=== PATIENT | female | born 1990 | race Caucasian/White ===

== ENCOUNTER 2016-08-07 11:15 | Inpatient (IN) | payer MEDICAID ==
[2016-08-07] VITALS (11 sets, daily range): BP systolic 130–142; BP diastolic 62–85; PULSE 95–101; RESP 18; TEMP 98.2
[~2016-08-07] VITALS: Ht 170.2 cm; Wt 113.4 kg
[2016-08-07 12:49] LABS: AUTOMATED NEUTROPHIL # 8.8 TH/MM3 (1.8-7.7); BASOPHIL % 0.2 % (0.0-2.0); EOSINOPHIL % 0.4 % (0.0-4.0); HEMO FLAGS DIFF FINAL; LYMPH % 14.5 % (9.0-44.0); LYMPHOCYTE # 1.6 TH/MM3 (1.0-4.8); MEAN CELL VOLUME 79.4 FL (80.0-100.0); MEAN CORPUSCULAR HEMOGLOBIN 26.7 PG (27.0-34.0); MEAN CORPUSCULAR HGB CONC 33.6 % (32.0-36.0); MONO % 5.2 % (0.0-8.0); NEUT % 79.7 % (16.0-70.0); PLATELET COUNT 322 TH/MM3 (150-450); RED BLOOD COUNT 3.78 MIL/MM3 (4.00-5.30); RED CELL DISTRIBUTION WIDTH 15.1 % (11.6-17.2); WHITE BLOOD COUNT 11.1 TH/MM3 (4.0-11.0)
[2016-08-07 13:09] LABS: ALT (GPT) 13 U/L (10-53); ANION GAP 12 MEQ/L (5-15); AST (GOT) 10 U/L (15-37); BICARBONATE 20.4 MEQ/L (21.0-32.0); BLOOD UREA NITROGEN 6 MG/DL (7-18); CHLORIDE 109 MEQ/L (98-107); GLOMERULAR FILTRATION RATE 159 ML/MIN (>89); POTASSIUM 3.7 MEQ/L (3.5-5.1); SODIUM (NA) 141 MEQ/L (136-145)
[2016-08-07 13:12] LABS: ALKALINE PHOSPHATASE 85 U/L (45-117); TOTAL BILIRUBIN ADULT LESS THAN 0.1 MG/DL (0.2-1.0)
[2016-08-07] MEDS ORDERED: LACTATED RINGER'S 1000 ML INJ 1,000 ML IV PRN (13:23)
[2016-08-07] MEDS ORDERED: SODIUM CHLOR 0.9% 1000 ML INJ 1,000 ML OTHER PRN (13:26)
[2016-08-07] MEDS ORDERED: ONDANSETRON HCL 4 MG/2 ML VIAL IV PRN (13:30)
[2016-08-07] MEDS ORDERED: MINERAL OIL 10 ML VIAL TOPICAL PRN (13:30)
[2016-08-07] MEDS ORDERED: SODIUM CHLORID 0.9% 500 ML INJ 500 ML IV PRN (13:30)
[2016-08-07] MEDS ORDERED: LIDOCAINE HCL 1% 50 ML VIAL I-DERMAL PRN (13:30)
[2016-08-07] MEDS ORDERED: CITRIC ACID-SODIUM CITRATE LIQ 30 ML UDC PO SCH (13:30)
[2016-08-07] MEDS ORDERED: LIDOCAINE HCL 1% 50 ML VIAL INFIL PRN (13:30)
[2016-08-07] MEDS ORDERED: SODIUM CHLOR 0.9% 1000 ML INJ 1,000 ML IV PRN (13:43)
--- NOTE | 2016-08-07 13:48 | HHI.HP ---
HPI Chief Complaint term induction, new diagnosis Gestational HTN at 37 weeks Date Seen: Aug 07, 2016 Time Seen: 11:00 Travel History International Travel<30 Days: No Contact w/Intl Traveler<30Days: No Known Affected Area: No History of Present Illness HPI 26 yo with santiago female IUP at 37w3d by LMP c/w 11wk sono, EDC , presents for routine visit and BP check after being seen yesterday by Dr. Lopez with BP 160/70 and 2+ proteinuria. Yesterday, per Dr. Lopez's office note, pt was asymptomatic, was given option of coming to L&D for steroids, pt declined, desired 1 day recheck of BP. On today's exam pt has 2+ edema to b/l lower extremities and 1+ to hands, c/o headache and seeing spots in vision today. BP remains elevated 156/86 in office. PIH labs were ordered last Saturday with 24h urine showing proteinuria of 334mg/24h, LFTs and plts were wnl. Patient's has been complicated by known history of Crohn's disease, on Humira [id number] injections, pt saw MFM at [facility] for consultation throughout . Early in pyelectasis was noted but this resolved on 07/05/16 scan at [facility]. Otherwise had been uncomplicated and BPs for pt ranged from 116-122/70-78 until office visit with Dr. Burns on 07/30/16 at which time BP was 148/76 and 1+ proteinuria was seen for first time. Pain 0/10 in pelvis, no contractions, no LOF, no VB. Good FM. Para: 0 : 2 Last Menstrual Period: Mar 12, 2016 Miscarriage: 1 : 0 History Past Medical History Narrative Medical Crohn's disease Varicella non-immune* Rubella non-immune* due to pt being on Humira her GI recommends against live vaccines Obstetric History Obstetric History G1 = SAB 11/2014 G2 = current, female Past Surgical History Narrative Surgical colonoscopy 2014 (3 total in lifetime due to Crohn's dz) Family History Family History: Negative Social History Alcohol Use: No Tobacco Use: No (quit when found out ) Substance Abuse: No Allergies-Medications (Allergen,Severity, Reaction): Coded Allergies: No Known Allergies (Unverified , 08/07/16) Review of Systems General / Constitutional: Weight Gain, No: Fever, Chills, Other Eyes: Visual changes (spots in vision past 24h), No: Diploplia, Blurred Vision , Pain, Photophobia HENT: Headaches (past 24h), No: Vertigo, Lightheadedness Cardiovascular: Edema (b/l LE), No: Irregular Rhythm, Chest Pain or Discomfort , Palpitations, Tachycardia, Syncope, Varicosities, Cyanosis Respiratory: No: Cough, Short of Breath, Other Gastrointestinal: No: Nausea, Vomiting, Diarrhea Genitourinary: Pelvic Pain (pressure), No: Decreased Urinary Output, Oliguria Musculoskeletal: No: Limited ROM, Weakness, Cramping, Edema, Pain Skin: No Rash, No Itching, No Dryness, No Lumps, No Change in Pigmentation, No Change in Nails, No Alopecia, No Lesions Neurologic: No: Weakness, Dizziness, Syncope, Focal Abnormalities, Coordination Problem, Headache, Slurred Speech, Seizures Psychiatric: No: Depression, Suicidal Ideations, Homicidal Ideation Endocrine: No: Heat Intolerance, Cold Intolerance, Polydipsia, Polyuria, Other Physical Exam Narrative GENERAL: Well-nourished, well-developed patient. SKIN: Warm and dry. HEAD: Normocephalic and atraumatic. EYES: No scleral icterus. No injection or drainage. ENT: No nasal drainage noted. Mucous membranes pink. Airway patent. NECK: Supple, trachea midline. No JVD. CARDIOVASCULAR: Regular rate and rhythm without murmurs, gallops, or rubs. RESPIRATORY: Breath sounds equal bilaterally. No accessory muscle use. BREASTS: deferred. ABDOMEN/GI: Abdomen soft, non-tender, bowel sounds present, no rebound, no guarding Gravid to [37] weeks size Fundal Height: [39] GENITOURINARY: External Genitalia: intact and normal in appearance BUS glands: wnl] Cervix: [posterior] Dilatation: [closed] Effacement: [50] Station: [-3] Presentation: [vtx] Membranes: [intact Uterine Contractions: [none] FHT's: Category:I tracing on L&D; 02/19 BPP in office yesterday 08/06/16 EXTREMITIES: No cyanosis ; +2 edema to b/l LE; +1 to hands BACK: Nontender without obvious deformity. No CVA tenderness. NEUROLOGICAL: Awake and alert. Motor and sensory grossly within normal limits. Five out of 5 muscle strength in all muscle groups. Normal speech. Data Data Vital Signs Reviewed: Yes Orders Complete Blood Count With Diff (08/07/16 12:36) Hold Clot (08/07/16 12:36) Abo/Rh Blood Type (08/07/16 12:36) Comprehensive Metabolic Panel (08/07/16 12:36) Admit To Inpatient (08/07/16 ) Code Status (08/07/16 13:23) Vital Signs (Adult) .Per protocol (08/07/16 13:23) Activity Oob Ad Patsy (08/07/16 13:23) ^ Heart (08/07/16 13:23) ^ Amnioinfusion (08/07/16 13:23) Urinary Catheter Management .ONCE (08/07/16 13:23) Diet Liquid (08/07/16 Lunch) Lactated Ringer's 1000 Ml Inj (Lr 1000 M (08/07/16 13:23) Lactated Ringer's 1000 Ml Inj (Lr 1000 M (08/07/16 13:23) Sodium Chlorid 0.9% 500 Ml Inj (Ns 500 M (08/07/16 13:30) Sodium Chlor 0.9% 1000 Ml Inj (Ns 1000 M (08/07/16 13:43) Lidocaine 1% Inj (50 Ml) (Xylocaine 1% I (08/07/16 13:30) Citric Acid-Sodium Citrate Liq (Bicitra (08/07/16 13:30) Ondansetron Inj (Zofran Inj) (08/07/16 13:30) Fentanyl Inj (Fentanyl Inj) (08/07/16 13:30) Fentanyl Inj (Fentanyl Inj) (08/07/16 13:30) Urinalysis - C+S If Indicated (08/07/16 13:23) Resp Oxygen Non Rebreathe Mask (08/07/16 ) ^ Epidural / Intrathecal Infus (08/07/16 13:23) Oxytocin 30 Units-500ml Premix (Pitocin (08/07/16 13:30) Lidocaine 1% Inj (50 Ml) (Xylocaine 1% I (08/07/16 13:30) Light Mineral Oil (Muri-Lube Oil) (08/07/16 13:30) Inpatient Certification (08/07/16 ) Specimen To Be Collected PRN (08/07/16 13:23) ^ Notify Parameters (08/07/16 13:23) Uric Acid (08/07/16 13:23) ^ Labor Induction (08/07/16 13:26) ^ Vaginal Insert (08/07/16 13:26) ^ Vaginal Lavage (08/07/16 13:26) ^ Heart (08/07/16 13:26) Sodium Chlor 0.9% 1000 Ml Inj (Ns 1000 M (08/07/16 13:26) Misoprostol Supp (Cytotec Supp) (08/07/16 13:30) Labs Laboratory Tests Test 08/07/16 11:45 White Blood Count 11.1 Red Blood Count 3.78 Hemoglobin 10.1 Hematocrit 30.0 Mean Corpuscular Volume 79.4 Mean Corpuscular Hemoglobin 26.7 Mean Corpuscular Hemoglobin 33.6 Concent Red Cell Distribution Width 15.1 Platelet Count 322 Mean Platelet Volume 6.9 Neutrophils (%) (Auto) 79.7 Lymphocytes (%) (Auto) 14.5 Monocytes (%) (Auto) 5.2 Eosinophils (%) (Auto) 0.4 Basophils (%) (Auto) 0.2 Neutrophils # (Auto) 8.8 Lymphocytes # (Auto) 1.6 Monocytes # (Auto) 0.6 Eosinophils # (Auto) 0.0 Basophils # (Auto) 0.0 CBC Comment DIFF FINAL Differential Comment Sodium Level 141 Potassium Level 3.7 Chloride Level 109 Carbon Dioxide Level 20.4 Anion Gap 12 Blood Urea Nitrogen 6 Creatinine 0.48 Estimat Glomerular Filtration 159 Rate Random Glucose 116 Calcium Level 8.7 Total Bilirubin LESS THAN 0.1 Aspartate Amino Transf 10 (AST/SGOT) Alanine Aminotransferase 13 (ALT/SGPT) Alkaline Phosphatase 85 Total Protein 6.9 Albumin 2.4 Blood Type A POSITIVE Blood Bank Comment Band and Hold Assessment/Plan Problem List: (1) Gestational hypertension w/o significant proteinuria in 3rd trimester Assessment and Plan 26 yo with EDC 08/26/16, 37w3d today, admit for term IOL due to new diagnosis GHTN at term with concerning symptoms. 1) GHTN: pt's BP in office were normal until 36 wks when first noted to be elevated with new proteinuria on Udip. Yesterday pt saw Dr. Lopez and BP was 160/70, PIH labs were wnl but 24h urine showed proteinuria of 334mg/24h; pt was given option of admit for steroids, she declined; on visit today BP remains elevated at 156/86 and now pt has edema, LUCAS and vision changes at home; agrees to admission for IOL; repeat PIH labs ordered; will evaluate for need for magnesium sulfate based on results & symptoms 2) IOL: pt has unfavorable Shah score & is aware of risk of failure of induction; will start with cytotec PV q4h and continue to evaluate; Cat I tracing at this time 3) GBS neg 4) personal h/o Crohn's dz: on Humira (q2wk injections); has seen MFM for consultation during ; pt cannot receive live vaccines due to Humira use 5) status: vertex, female, Cat I tracing currently and 02/19 BPP in office ; EFW 81.3%Lien rao#5oz on 08/06/16 office sono with GISSELLE 8.7cm, posterior placenta Discharge Planning not meeting criteria Denise Rosenthal MD Aug 07, 2016 13:48
[2016-08-07] MEDS: LACTATED RINGER'S 1000 ML INJ 1,000 ML IV SCH ×2 (13:52→22:07)
[2016-08-07] MEDS ORDERED: OXYTOCIN 30 UNITS-500ML PREMIX 500 ML IV ONE (14:00)
[2016-08-07] MEDS ORDERED: MISOPROSTOL 25 MCG SUPP VAGINAL ONE (14:00)
[2016-08-07 14:19] LABS: BACTERIA, URINE MANY /hpf; BLOOD, URINE SMALL (NEG); GLUCOSE,URINE NEG (NEG); HYALINE CAST, URINE 1 /lpf (RARE); KETONE, URINE TRACE mg/dL (NEG); MUCUS URINE FEW /lpf (OCC); NITRITE,URINE NEG (NEG); PH, URINE 5.5 (5.0-8.5); SQUAMOUS EPITHELIAL CELL URINE 5 /hpf (0-5); URINE COLOR YELLOW (YELLW/STRAW)
[2016-08-07 14:21] LABS: COMMENT (UR) CULTURE INDICATED; CULTURE IF INDICATED CULTURE INDICATED
[2016-08-07] MEDS: MISOPROSTOL 25 MCG SUPP VAGINAL SCH ×2 (19:14→23:23)
[2016-08-08] VITALS (34 sets, daily range): BP systolic 129–166; BP diastolic 59–105; PULSE 80–109; RESP 18; TEMP 97.6–98.5
[2016-08-08] MEDS: MISOPROSTOL 25 MCG SUPP VAGINAL SCH ×5 (03:41→18:15)
--- NOTE | 2016-08-08 08:11 | PD.LABORPN ---
Subjective Subjective received 4 doses cytotec yesterday with some cramping states even more swollen than saturday no N, V, LUCAS, blurred vision or RUG! GFM no leaking or bleeding Objective Vital Signs Vital Signs Date Time Temp Pulse Resp B/P Pulse Ox O2 Delivery O2 Flow Rate FiO2 08/08/16 05:00 80 133/69 08/08/16 02:15 18 08/08/16 02:00 98 132/72 08/08/16 01:01 92 137/73 Objective 1+/thick/soft/midposition strip category one efw 8 pounds pelvis unproven 2+ edema and normal reflexes Assessment/Plan Problem List: (1) Gestational hypertension w/o significant proteinuria in 3rd trimester Assessment and Plan induction for PIH--normtensive at this time begin pitocin and allow to use birthing ball and rocking chair while BPs good may be serial induction reassess in pm Ayesha Lopez MD Aug 08, 2016 08:11
[2016-08-08] MEDS ORDERED: OXYTOCIN 30 UNITS-500ML PREMIX 500 ML IV SCH (08:15)
[2016-08-08] MEDS: LACTATED RINGER'S 1000 ML INJ 1,000 ML IV SCH ×2 (09:03→15:19)
--- NOTE | 2016-08-08 13:11 | PD.LABORPN ---
Subjective Subjective feeling occasional UC eating lunch no LUCAS N, V, blurred vision GFM Objective Vital Signs Vital Signs Date Time Temp Pulse Resp B/P Pulse Ox O2 Delivery O2 Flow Rate FiO2 08/08/16 10:43 101 144/90 08/08/16 10:42 18 08/08/16 09:01 99 149/87 08/08/16 08:58 18 08/08/16 08:50 104 135/90 08/08/16 08:25 18 08/08/16 08:23 109 149/90 08/08/16 07:10 98.1 08/08/16 07:08 18 08/08/16 07:00 88 135/69 Objective 1+/80/-1 thinner and softer and more anterior strip reassuring Assessment/Plan Problem List: (1) Gestational hypertension w/o significant proteinuria in 3rd trimester Assessment and Plan Bps mildly elevated--watch for increase ROM when cervix more favorable Ayesha Lopez MD Aug 08, 2016 13:11
[2016-08-08] MEDS ORDERED: MISOPROSTOL 100 MCG TAB PO ONE (19:45)
--- NOTE | 2016-08-08 20:33 | PD.LABORPN ---
Subjective Subjective Mild contractions throughout day. no significant cervical change No LUCAS, N, V, blurred vision GFM Objective Vital Signs Vital Signs Date Time Temp Pulse Resp B/P Pulse Ox O2 Delivery O2 Flow Rate FiO2 08/08/16 19:20 94 140/66 08/08/16 19:09 101 150/101 08/08/16 19:07 97 159/99 08/08/16 19:06 97.6 18 08/08/16 19:05 100 166/100 08/08/16 17:32 18 08/08/16 17:32 87 153/92 08/08/16 16:14 96 154/94 08/08/16 16:13 97.6 08/08/16 16:13 18 08/08/16 15:21 18 08/08/16 15:20 93 150/96 08/08/16 15:17 108 153/105 08/08/16 13:22 91 18 150/84 Objective 1-2 cm/80/-2 intact strip category one Assessment/Plan Problem List: (1) Gestational hypertension w/o significant proteinuria in 3rd trimester Assessment and Plan BPs are gradually increasing when ambulating or sitting upright They are normal when Denise is on her left side. Will try oral cytotec tonight to further ripen cervix and resume pitocin in the am. LFTs and CBC with platelets to be repeated. Ayesha Lopez MD Aug 08, 2016 20:33
[2016-08-08] MEDS ORDERED: PILL SPLITTER OTHER PRN (20:45)
[2016-08-08 20:50] LABS: AUTOMATED NEUTROPHIL # 10.2 TH/MM3 (1.8-7.7); BASOPHIL % 0.1 % (0.0-2.0); EOSINOPHIL # 0.1 TH/MM3 (0-0.4); EOSINOPHIL % 0.5 % (0.0-4.0); HEMATOCRIT 29.1 % (35.0-46.0); HEMO FLAGS DIFF FINAL; LYMPHOCYTE # 1.8 TH/MM3 (1.0-4.8); MEAN CELL VOLUME 79.3 FL (80.0-100.0); MEAN CORPUSCULAR HEMOGLOBIN 26.2 PG (27.0-34.0); MEAN CORPUSCULAR HGB CONC 33.1 % (32.0-36.0); MONO % 6.1 % (0.0-8.0); NEUT % 79.3 % (16.0-70.0); PLATELET COUNT 281 TH/MM3 (150-450); RED BLOOD COUNT 3.67 MIL/MM3 (4.00-5.30); RED CELL DISTRIBUTION WIDTH 14.7 % (11.6-17.2); WHITE BLOOD COUNT 12.8 TH/MM3 (4.0-11.0)
[2016-08-08 21:12] LABS: TOTAL BILIRUBIN ADULT 0.1 MG/DL (0.2-1.0)
[2016-08-08] MEDS ORDERED: NS 1000 ML XX PRN (21:30)
[2016-08-08] MEDS ORDERED: DINOPROSTONE 10 MG INSERT-LEAVE FOR 12 HOURS VAGINAL ONE (21:30)
[2016-08-09] VITALS (59 sets, daily range): BP systolic 91–200; BP diastolic 54–127; PULSE 80–131; RESP 16–18; TEMP 97.5–98.6
[2016-08-09] MEDS: LACTATED RINGER'S 1000 ML INJ 1,000 ML IV SCH ×2 (04:42→08:48)
--- NOTE | 2016-08-09 08:37 | PD.LABORPN ---
Subjective Subjective s/p cervidil last night, IOL for PIH, GBBS neg Objective Vital Signs Vital Signs Date Time Temp Pulse Resp B/P Pulse Ox O2 Delivery O2 Flow Rate FiO2 08/09/16 04:30 97.5 16 08/09/16 04:01 99 141/68 08/09/16 03:01 92 150/86 Objective Pelvic Exam: Cervix: [-] Dilatation: [-] 1-2 cm Effacement: [-] 50% Station: [-] -1 Presentation: [-] vtx Membranes: [intact or ruptured] arom clear Uterine Contractions: [-] irreg FHT's: Category: [-] 1 Baseline: [-] Reactive: [-] R Variability: [-] good Decels: [-] Assessment/Plan Problem List: (1) Gestational hypertension w/o significant proteinuria in 3rd trimester Assessment and Plan IUP at 37 4/7 wks IOL for PIH s/p arom for pit aug epidural prn anticipate GBS neg Jamia Burns MD Aug 09, 2016 08:37
[2016-08-09] MEDS ORDERED: OXYTOCIN 30 UNITS-500ML PREMIX 500 ML IV SCH (08:45)
[2016-08-09] MEDS ORDERED: fentaNYL 2MCG-BUPIV 0.125% INJ 100 ML ONE (11:29)
[2016-08-09] MEDS ORDERED: NO SYSTEM NARCOTICS XX PRN (12:30)
[2016-08-09] MEDS ORDERED: DO NOT ADMINISTER ANTICOAGULANTS XX PRN (12:30)
[2016-08-09] MEDS ORDERED: ePHEDrine/NS 50 MG/5 ML SYR IV PRN (12:30)
--- NOTE | 2016-08-09 14:02 | PD.OB.DELI ---
Anesthesia: Epidural Episiotomy: None Vaginal Delivery: Normal Presentation: Occiput anterior Nuchal Cord: None Infant: Female One Minute : 9 Five Minute : 9 Weight: 7-8 Care: Suctioned Placenta: Spontaneous delivery Laceration: 2 deg Repair: Chromic interrupted, Vicryl Jamia Christy MD Aug 09, 2016 14:02
[2016-08-09] MEDS ORDERED: ONDANSETRON ODT 4 MG TAB PO PRN (14:15)
[2016-08-09] MEDS ORDERED: ZOLPIDEM TARTRATE 5 MG TAB PO PRN (14:15)
[2016-08-09] MEDS ORDERED: ALUMINUM/MAGNESIUM/SIMETH 30 ML CUP PO PRN (14:15)
[2016-08-09] MEDS ORDERED: SODIUM CHLORIDE 0.9% FLUSH 5 ML FLUSH IV PRN (14:15)
[2016-08-09] MEDS ORDERED: OXYTOCIN 30 UNITS-500ML PREMIX 500 ML IV ONE (14:15)
[2016-08-09] MEDS: IBUPROFEN 600 MG TAB PO PRN (17:44)
[2016-08-09] MEDS: ACETAMINOPHEN 325 MG TAB PO PRN (17:47)
[2016-08-09] MEDS: BENZOCAINE 20% TOPICAL SPRAY 60 ML CAN TOPICAL PRN (17:49)
[2016-08-09] MEDS: WITCH HAZEL 50%/GLYCERIN 12.5% 40 PAD JAR TOPICAL PRN (17:49)
[2016-08-09] MEDS ORDERED: SODIUM CHLORIDE 0.9% FLUSH 5 ML FLUSH IV SCH (21:00)
[2016-08-10 03:00] VITALS: BP 142/85; PULSE 90; RESP 18; TEMP 98; O2SAT 98
[2016-08-10] MEDS: IBUPROFEN 600 MG TAB PO PRN ×3 (03:26→18:27)
[2016-08-10] MEDS: ACETAMINOPHEN 325 MG TAB PO PRN ×3 (03:27→20:08)
[2016-08-10] MEDS: DOCUSATE SODIUM 50 MG/SENNA 8.6 MG TAB PO PRN ×2 (03:27→18:27)
[2016-08-10 07:45] VITALS: BP 124/75; PULSE 89; RESP 18; TEMP 97.9
--- NOTE | 2016-08-10 08:25 | HHI.OB ---
Subjective Post Day: 1 Remarks Doing well, Tolerating diet Baby is good Pain is well controlled. Objective Vitals/I&O Vital Signs Date Time Temp Pulse Resp B/P Pulse Ox O2 Delivery O2 Flow Rate FiO2 08/10/16 03:00 90 18 142/85 08/10/16 03:00 98.0 98 08/09/16 15:31 98 140/70 08/09/16 15:10 18 08/09/16 15:01 92 145/80 08/09/16 14:53 18 08/09/16 14:45 90 113/65 08/09/16 14:34 18 08/09/16 14:31 131 91/54 08/09/16 14:25 18 08/09/16 14:16 96 143/93 08/09/16 14:15 98.6 08/09/16 14:15 94 08/09/16 14:10 99 08/09/16 14:05 94 08/09/16 14:01 94 156/86 08/09/16 14:00 94 08/09/16 13:55 91 08/09/16 13:50 105 08/09/16 13:46 105 163/90 08/09/16 13:45 97 08/09/16 13:40 93 08/09/16 13:38 95 159/127 08/09/16 13:35 95 08/09/16 13:31 114 200/115 08/09/16 13:30 102 08/09/16 13:00 97 133/84 08/09/16 13:00 100 08/09/16 12:56 18 08/09/16 12:55 85 08/09/16 12:50 88 08/09/16 12:45 91 08/09/16 12:30 87 140/85 08/09/16 12:30 85 08/09/16 12:26 82 146/82 08/09/16 12:25 92 08/09/16 12:20 85 08/09/16 12:20 91 138/83 08/09/16 12:15 86 08/09/16 12:15 94 141/79 08/09/16 12:10 94 08/09/16 12:10 96 145/79 08/09/16 12:06 95 149/79 08/09/16 12:05 101 08/09/16 12:00 92 147/80 08/09/16 12:00 106 08/09/16 11:57 98.2 18 08/09/16 11:56 92 152/70 08/09/16 11:55 96 08/09/16 11:51 99 143/77 08/09/16 11:50 94 08/09/16 11:46 88 161/84 08/09/16 11:45 82 08/09/16 11:42 99 166/99 08/09/16 11:40 102 170/97 08/09/16 11:40 103 08/09/16 11:35 90 08/09/16 11:30 87 08/09/16 11:25 81 08/09/16 11:25 85 153/94 08/09/16 10:50 83 156/81 08/09/16 10:50 18 08/09/16 08:38 80 149/85 08/09/16 08:28 18 Objective Remarks GENERAL: Well-nourished, well-developed patient. CARDIOVASCULAR: Regular rate and rhythm without murmurs, gallops, or rubs. RESPIRATORY: Breath sounds equal bilaterally. No accessory muscle use. ABDOMEN/GI: Abdomen soft, non-tender. Fundus: Firm, non-tender at umbilicus. GENITOURINARY: Light to moderate bleeding. EXTREMITIES: No cyanosis or edema, non-tender, without signs of DVT. Medications and IVs Current Medications Medications (Trade) Dose Ordered Sig/Ricardo Route Start Time Stop Time Status Last Admin (NS Flush) 2 ml BID IV 08/09/16 21:00 (NS Flush) 2 ml UNSCH PRN IV 08/09/16 14:15 (Tylenol) 650 mg Q4H PRN PO 08/09/16 14:15 08/10/16 03:27 (Motrin) 600 mg Q6H PRN PO 08/09/16 14:15 08/10/16 03:26 (Americaine 20% Top Spr) 1 spray Q4H PRN TOPICAL 08/09/16 14:15 08/09/16 17:49 (Tucks Pads) 1 applic QID PRN TOPICAL 08/09/16 14:15 08/09/16 17:49 (Abi-Colace) 2 tab Q12H PRN PO 08/09/16 14:15 08/10/16 03:27 (Ambien) 5 mg HS PRN PO 08/09/16 14:15 (Mag-Al Plus Susp Liq) 15 ml Q8H PRN PO 08/09/16 14:15 (Zofran Odt) 4 mg Q6H PRN PO 08/09/16 14:15 Assessment/Plan Problem List: (1) Gestational hypertension w/o significant proteinuria in 3rd trimester Assessment and Plan PPD #1 Doing well Advise to get flu shot as she is on Humira Anemia start fe when bowels are moving well. Discharge Planning home tomorrow if stable Tal Darden MD Aug 10, 2016 08:25
[2016-08-11] MEDS: IBUPROFEN 600 MG TAB PO PRN ×2 (02:48→14:50)
[2016-08-11] MEDS: ACETAMINOPHEN 325 MG TAB PO PRN ×2 (02:49→14:50)
[2016-08-11 08:20] VITALS: TEMP 98.3
--- NOTE | 2016-08-11 09:19 | HHI.OB ---
Subjective Post Day: 2 Remarks doing well post vaginal delivery after long labor home today and follow up in 6 weeks Objective Vitals/I&O Vital Signs Date Time Temp Pulse Resp B/P Pulse Ox O2 Delivery O2 Flow Rate FiO2 08/11/16 08:20 98.3 Objective Remarks GENERAL: Well-nourished, well-developed patient. CARDIOVASCULAR: Regular rate and rhythm without murmurs, gallops, or rubs. RESPIRATORY: Breath sounds equal bilaterally. No accessory muscle use. ABDOMEN/GI: Abdomen soft, non-tender. Fundus: Firm, non-tender at umbilicus. GENITOURINARY: Light to moderate bleeding. EXTREMITIES: No cyanosis or edema, non-tender, without signs of DVT. Medications and IVs Current Medications Medications (Trade) Dose Ordered Sig/Ricardo Route Start Time Stop Time Status Last Admin (NS Flush) 2 ml BID IV 08/09/16 21:00 (NS Flush) 2 ml UNSCH PRN IV 08/09/16 14:15 (Tylenol) 650 mg Q4H PRN PO 08/09/16 14:15 08/11/16 02:49 (Motrin) 600 mg Q6H PRN PO 08/09/16 14:15 08/11/16 02:48 (Americaine 20% Top Spr) 1 spray Q4H PRN TOPICAL 08/09/16 14:15 08/09/16 17:49 (Tucks Pads) 1 applic QID PRN TOPICAL 08/09/16 14:15 08/09/16 17:49 (Abi-Colace) 2 tab Q12H PRN PO 08/09/16 14:15 08/10/16 18:27 (Ambien) 5 mg HS PRN PO 08/09/16 14:15 (Mag-Al Plus Susp Liq) 15 ml Q8H PRN PO 08/09/16 14:15 (Zofran Odt) 4 mg Q6H PRN PO 08/09/16 14:15 Assessment/Plan Problem List: (1) Gestational hypertension w/o significant proteinuria in 3rd trimester Assessment and Plan PPD #2 Doing well flu shot Discharge Planning home tomorrow if stable Ayesha Lopez MD Aug 11, 2016 09:19
[2016-08-11] MEDS ORDERED: IBUP-232 PO (09:20)
--- NOTE | 2016-08-11 09:21 | HHI.DCPOC ---
Discharge Care Plan Report Symptoms to Your Doctor -Temperate above 100.5 degrees -Redness, of incision or excessive or foul smelling drainage -Unusual pain or calf pain -Increased vaginal bleeding -Painful or difficulty urinating -Feelings of extreme sadness or anxiety after 2 weeks Goals to Promote Your Health * To prevent worsening of your condition and complications * To maintain your health at the optimal level Directions to Meet Your Goals Take your medications as prescribed Follow your dietary instruction Follow activity as directed Ensure plenty of rest for recovery Drink fluids for hydration Keep your appointments as scheduled Take your immunizations and boosters as scheduled If your symptoms worsen call your PCP, if no PCP go to Urgent Care Center or Emergency Room Smoking is Dangerous to Your Health. Avoid second hand smoke Call the 24-hour crisis hotline for domestic abuse at Ayesha Lopez MD Aug 11, 2016 09:21
[2016-08-11] MEDS: DOCUSATE SODIUM 50 MG/SENNA 8.6 MG TAB PO PRN (14:49)
[2016-08-11] MEDS: WITCH HAZEL 50%/GLYCERIN 12.5% 40 PAD JAR TOPICAL PRN (14:50)
[2016-08-11] MEDS: BENZOCAINE 20% TOPICAL SPRAY 60 ML CAN TOPICAL PRN (14:50)
== END 2016-08-11 15:05 | disposition home or self-care (01) | DRG 775 ==
LOC: H2EB 11:15 → H1EA 08-09 15:52
PROVIDERS: ADMIT Obstetrics & Gynecology; ATTEND Obstetrics & Gynecology
PROC: 10E0XZZ Delivery of Products of Conception, External Approach (ICD-10-PCS; principal; 2016-08-07)
PROC: 3E0R3CZ (ICD-10-PCS; 2016-08-07)
PROC: 00HU33Z Insertion of Infusion Device into Spinal Canal, Percutaneous Approach (ICD-10-PCS; 2016-08-07)
DX: O13.4 Gestational [pregnancy-induced] hypertension without significant proteinuria, complicating childbirth (principal); K50.90 Crohn's disease, unspecified, without complications; Z37.0 Single live birth; D64.9 Anemia, unspecified; O99.02 Anemia complicating childbirth; Z3A.37 37 weeks gestation of pregnancy; O12.14 Gestational proteinuria, complicating childbirth; O99.62 Diseases of the digestive system complicating childbirth
CPT/HCPCS: 80053; 80076; 81001; 84550; 85025; 86900; 86901; 87086; J2590; J3010; J7120